=== PATIENT | female | born 1960 | race Caucasian/White ===

== ENCOUNTER → 2019-04-05 16:17 | Outpatient (CLI) | payer SELFPAY | DX: Z23 Encounter for immunization (principal) | CPT/HCPCS: 90471; 90686 ==

== ENCOUNTER 2019-04-26 09:45 | Emergency (ER) | payer OTHER, SELFPAY ==
[2019-04-26 09:49] VITALS: BP 138/78; PULSE 75; RESP 18; TEMP 36.5; O2SAT 99
--- NOTE | 2019-04-26 09:56 | DI.RAD.S_ITS ---
PROCEDURE: XR HAND LT MIN 3V INDICATIONS: fall, pain left hand. TECHNIQUE: 3 views of the hand(s) acquired. COMPARISON: None. FINDINGS: Bones: No fractures or dislocations. Carpal bones are normally aligned. No suspicious bony lesions. There may be mild/early degenerative changes of the metacarpophalangeal and interphalangeal joints of the hand. Soft tissues: No suspicious soft tissue calcifications. IMPRESSION: No acute osseous abnormality of the left hand is appreciated. Dictated by: Mehul Ruiz M.D. on 04/26/2019 at 9:10 Approved by: Mehul Ruiz M.D. on 04/26/2019 at 9:11
--- NOTE | 2019-04-26 10:43 | ED.FALL ---
HPI - Fall General Chief Complaint: Fall Stated Complaint: Fell in parking lot LT hand and knee Time Seen by Provider: 04/26/19 10:43 Source: patient Mode of arrival: Ambulatory Related Data Home Medications Medication Instructions Recorded Confirmed No Known Home Medications 04/26/19 04/26/19 Allergies Allergy/AdvReac Type Severity Reaction Status Date / Time No Known Drug Allergies Allergy Verified 04/26/19 09:55 Patient History Social History Smoking Status: Never smoker Smoking Status: Never smoker alcohol intake frequency: 0-2 drinks per day Substance Use Type: does not use Exam Initial Vital Signs Initial Vital Signs: Vital Signs Temperature 97.7 F 04/26/19 09:49 Pulse Rate 75 04/26/19 09:49 Respiratory Rate 18 04/26/19 09:49 Blood Pressure 138/78 04/26/19 09:49 Pulse Oximetry 99 04/26/19 09:49 Course Orders Ordered: ED Orders 04/26/19 09:56 XR hand LT min 3V Stat Vital Signs Vital signs: Vital Signs - 8 hr 04/26/19 09:49 Temperature 97.7 F Pulse Rate 75 Respiratory Rate 18 Blood Pressure 138/78 Pulse Oximetry 99 MDM - Fall Imaging Data hand x ray: Radiologist's impression: IMPRESSION: No acute osseous abnormality of the left hand is appreciated. Dictated by: Mehul Ruiz M.D. on 04/26/2019 at 9:10 Discharge Plan Departure Prescriptions: No Action No Known Home Medications RF: 0
--- NOTE | 2019-04-26 11:16 | ED_ITS ---
HPI - Extremity Injury (Upper) <FLORENTINO Rmoero - Last Filed: 04/26/19 22:54> General Chief Complaint: Fall Stated Complaint: Fell in parking lot LT hand and knee Time Seen by Provider: 04/26/19 10:43 Source: patient Mode of arrival: Ambulatory Limitations: no limitations History of Present Illness HPI narrative: This is a 59-year-old female, nonsmoker, who had s/p FOOSH on bilateral hands on uneven gravel ground this morning at employed parking lot in [facility]. She denies any other injuries. She reports left lateral mid hand discomfort with superficial abrasion. She also fell on her left knee and reports discomfort but reports is able to bear her weight after the injury. Patient had history of carpal tunnel surgery on left hand in the past. Reports intact sensation and movements. Patient had cleaned hand wounds with soap and water prior coming into ED and dressed with antibiotic ointment and Band-Aid. Last tetanus immunization was updated last year. Right dominant hand. Related Data Home Medications Medication Instructions Recorded Confirmed No Known Home Medications 04/26/19 04/26/19 Allergies Allergy/AdvReac Type Severity Reaction Status Date / Time No Known Drug Allergies Allergy Verified 04/26/19 09:55 Review of Systems <FLORENTINO Romero - Last Filed: 04/26/19 22:54> Review of Systems Narrative: General: Denies fever, chills, fatigue, malaise, sweats. HEENT: Denies sinus pain, ear pain, sore throat, difficulty swallowing, dizziness. Respiratory: Denies dyspnea, cough, wheezing, hemoptysis, sputum. Cardiovascular: Denies chest pain, palpitations, orthopnea, edema. Gastrointestinal: Denies nausea, vomiting, abdominal pain, diarrhea, constipation, melena. : Denies dysuria, frequency, incontinence, hematuria, urinary retention. Musculoskeletal: See HPI Skin: Small Superficial abrasion on left mid hand. Denies rash, skin lesions, or other. Neurologic: Denies weakness, headache, numbness, change in speech, confusion, seizures, incoordination. Psychiatric: No concerning psychosocial issues. 12-point review of systems is negative except for those stated above. Patient History <FLORENTINO Romero - Last Filed: 04/26/19 22:54> Surgical History H/O eye surgery (Acute) H/O left knee surgery (Acute) History of carpal tunnel surgery (Acute) Social History Smoking Status: Never smoker Smoking Status: Never smoker alcohol intake frequency: 0-2 drinks per day Substance Use Type: does not use Exam <FLORENTINO Romero - Last Filed: 04/26/19 22:54> Narrative Exam Narrative: General appearance: well developed, well nourished, in no acute distress. Head: normocephalic, atraumatic, no scalp lesions, non-tender. ENT: Bilateral auditory canals and tympanic membranes clear. Hearing grossly intact. Nose without bleeding, purulent discharge, septal hematoma or deviation. Turbinate without erythema or swelling. Facial sinuses nontender to palpate. Mucous membrane moist, no mucosal lesion. Throat without erythema, tonsillar hypertrophy or exudate. Uvula in midline, airway patent. Neck/Thyroid: neck supple, full range of motion, no visible masses or meningeal signs. No JVD, non-tender without lymphadenopathy. Skin: no suspicious rashes, lesions over visible areas. Warm and dry and appropriate color for ethnicity. Heart: no clubbing, no cyanosis, no edema. S1 and S2 normal. RRR w/o murmurs, clicks, or bruits. Lungs: Breathing even and unlabored. No stridor. No accessory muscles used. Able to speak in full sentences. Chest: normal shape and expansion. Abdomen: non-obese, non-distended. Neurologic: alert and oriented. Cognitive exam, BOTTOM POUNDER CEMENT SHOES and PNS grossly intact on informal exam. Psych: good eye contact, normal affect. Initial Vital Signs Initial Vital Signs: Vital Signs Temperature 97.7 F 04/26/19 09:49 Pulse Rate 75 04/26/19 09:49 Respiratory Rate 18 04/26/19 09:49 Blood Pressure 138/78 04/26/19 09:49 Pulse Oximetry 99 04/26/19 09:49 Extrem Left upper extremity: shoulder/upper arm Details: inspection abnormal; no tenderness, elbow/forearm Details: normal to inspection; no tenderness, wrist Details: radial pulse present and hand Details: normal to inspection, normal capillary refill, neuromotor exam normal, neurosensory exam normal, normal ROM of fingers, no swelling and abrasion (Lateral left mid hand) Location: of the palm; no unusual warmth Left lower extremity: knee Details: tenderness <Alicia Mary MD - Last Filed: 04/27/19 11:56> Initial Vital Signs Initial Vital Signs: Vital Signs Temperature 97.7 F 04/26/19 09:49 Pulse Rate 75 04/26/19 09:49 Respiratory Rate 18 04/26/19 09:49 Blood Pressure 138/78 04/26/19 09:49 Pulse Oximetry 99 04/26/19 09:49 Course <FLORENTINO Romero - Last Filed: 04/26/19 22:54> Orders Ordered: ED Orders 04/26/19 09:56 XR hand LT min 3V Stat Vital Signs Vital signs: Vital Signs - 8 hr 04/26/19 09:49 Temperature 97.7 F Pulse Rate 75 Respiratory Rate 18 Blood Pressure 138/78 Pulse Oximetry 99 <Alicia Mary MD - Last Filed: 04/27/19 11:56> Orders Ordered: ED Orders 04/26/19 09:56 XR hand LT min 3V Stat Vital Signs Vital signs: Vital Signs - 8 hr 04/26/19 09:49 Temperature 97.7 F Pulse Rate 75 Respiratory Rate 18 Blood Pressure 138/78 Pulse Oximetry 99 MDM - Extremity Injury (Upper) <FLORENTINO Romero - Last Filed: 04/26/19 22:54> Differential Diagnosis Differential diagnosis: Likely fracture of hand and other (Contusion left hand, contusion left knee,) Medical Records Attestation: I reviewed the patient's medical records. Imaging Data hand x ray: Radiologist's impression: [address] [id number] XRay Report Signed Patient: ROCKY EVANGELISTA#: [id number] : 1960Acct:[id number] Age/Sex: 59 / FDate of Service: 04/26/19 Loc: ED Accession Number: [id number] Procedure: XR hand LT min 3V Ordering Provider: Alicia Mary MD PROCEDURE: XR HAND LT MIN 3V INDICATIONS: fall, pain left hand. TECHNIQUE: 3 views of the hand(s) acquired. COMPARISON: None. FINDINGS: Bones: No fractures or dislocations. Carpal bones are normally aligned. No suspicious bony lesions. There may be mild/early degenerative changes of the metacarpophalangeal and interphalangeal joints of the hand. Soft tissues: No suspicious soft tissue calcifications. IMPRESSION: No acute osseous abnormality of the left hand is appreciated. Dictated by: Mehul Ruiz M.D. on 04/26/2019 at 9:10 Approved by: Mehul Ruiz M.D. on 04/26/2019 at 9:11 [facility] Narrative Medical decision making narrative: This is a 59-year-old female presents to ED with left lateral mid hand pain with abrasion and L knee pain after she had FOOSH on bilateral hand and left knee on gravel ground when she was walking fast this morning. Neurovascular exam is intact distally on left hand. Patient had cleaned affected hand and dressed with antibiotic ointment and Band-Aid prior coming into ED. x-ray test does not show any acute findings such as fracture or dislocation today. Patient's tetanus immunizations up-to-date. Discussed RICE therapy on affected limb injuries and to use [id number] Tylenol and or Motrin as needed. Return precautions were discussed with the patient and verbalized understanding. Required L and I paperwork has been completed. No further questions expressed at this time and agrees with the treatment plan. Discharge Plan Departure Patient Disposition: Home Clinical Impression: Contusion of hand, left Qualifiers: Encounter type: initial encounter Qualified Code(s): S60.222A - Contusion of left hand, initial encounter Discharge Date/Time: 04/26/19 11:25 Instructions: DI for Hand Pain Activity Restrictions/Additional Instructions: You have been diagnosed with [left hand contusion from fall. Today's x-ray test does not show acute findings such as fractures or dislocation]. What to do: *Take your medications as directed. You use [id number] ibuprofen/Motrin 400-600 mg t.i.d. as needed for discomfort and inflammation. You can add Tylenol 650-1000 mg 3 to 4 times a day as needed for discomfort. Please use ?RICE? therapy such as Rest, Ice, Compression/Spliint/Acewra, and Elevation above the chest level. Ice the area for next 24-48 hrs after the initial injury. Please try to avoid getting swelling to the affected site since this may cause increasing pain. *Follow up with your primary care provider in 2-3 days, call for an appointment. Let them know you were seen in the ED and that we asked you to be seen in follow up. *Return to ED if you have any new, worsening, or concerning symptoms, such as [ increasing pain, swelling, tingling/numbness, unable to move affected/below the injury site, cool limbs. If pain persists greater than couple of weeks, please follow-up with your primary care physician for re-evaluation and further imaging test]. Prescriptions: No Action No Known Home Medications RF: 0 Referrals: Lennie Valero MD [Non-Staff] -
== END 2019-04-26 11:25 | disposition home or self-care (01) ==
PROVIDERS: Emergency Provider Nurse Practitioner Family
DX: S60.222A Contusion of left hand, initial encounter (principal); S89.92XA Unspecified injury of left lower leg, initial encounter; W18.30XA Fall on same level, unspecified, initial encounter; Y99.0 Civilian activity done for income or pay
CPT/HCPCS: 73130; 99281; 99283